=== PATIENT | female | born 1935 | race Caucasian/White ===

== ENCOUNTER → 2020-06-22 | Outpatient (CLI) | payer MEDICARE, BC | LOC: COL.RAD 10:42 | DX: R42 Dizziness and giddiness (principal); H57.11 Ocular pain, right eye ==

== ENCOUNTER → 2022-03-08 | Outpatient (CLI) | payer MEDICARE, BC ==
[2022-03-08 14:10] LABS: CALCIUM 9.9 mg/dL (8.4-10.2); CREATININE, serum 1.62 mg/dL (0.57-1.11); MAGNESIUM 1.7 mg/dL (1.6-2.6); POTASSIUM 4.5 mmol/L (3.5-4.5)
== END ==
LOC: ZCOL.LAB 13:58
PROVIDERS: Internal Medicine
DX: N18.32 Chronic kidney disease, stage 3b (principal)

== ENCOUNTER → 2022-03-13 | Outpatient (CLI) | payer MEDICARE, BC | LOC: COL.VAS 12:30 | DX: I50.32 Chronic diastolic (congestive) heart failure (principal) ==